=== PATIENT | female | born 2000 | race Caucasian/White ===

== ENCOUNTER 2023-01-03 08:53 | Outpatient (CLI) | payer OTHER, SELFPAY | END 2023-01-03 08:54 | disposition home or self-care (01) | PROVIDERS: PCP Physician Assistant Medical; Visit Provider Physician Assistant | DX: Z01.419 Encounter for gynecological examination (general) (routine) without abnormal findings (principal); Z13.6 Encounter for screening for cardiovascular disorders | CPT/HCPCS: 80061 ==

== ENCOUNTER 2023-04-07 10:06 | Outpatient (CLI) | payer OTHER, SELFPAY ==
[2023-04-07 13:58] LABS: Chlamydia DNA Amplified* NOT DETECTED (No Detected); GC DNA Amplified* NOT DETECTED (No Detected)
== END 2023-04-07 10:07 | disposition home or self-care (01) ==
LOC: NFLDREF 10:06
PROVIDERS: PCP Physician Assistant Medical; Visit Provider Physician Assistant
DX: N92.1 Excessive and frequent menstruation with irregular cycle (principal); Z11.3 Encounter for screening for infections with a predominantly sexual mode of transmission
CPT/HCPCS: 87491; 87591

== ENCOUNTER 2023-05-05 13:45 | Outpatient (CLI) | payer OTHER, SELFPAY ==
--- NOTE | 2023-05-05 14:00 | CRLHL7_ITS ---
For Patients: As a result of the Century Cures Act, medical imaging exams and procedure reports are released immediately into your electronic medical record. You may view this report before your referring provider. If you have questions, please contact your health care provider. INDICATION: EXCESSIVE AND FREQUENT MENSES COMPARISON: 09/04/2020 TECHNIQUE: 2D lopez scale and color Doppler images were acquired of the pelvis using a transabdominal and transvaginal approach. FINDINGS: Sonographic images demonstrate a normal size and smooth outer contour of the uterus. Uterus measures 9.0 cm in length by 3.2 cm in AP diameter by 4.2 cm in transverse dimension. The myometrium has a normal uniform echotexture. Intrauterine device is present within the upper mid endometrial canal. The endometrium does not appear thickened and measures approximately 4.6 millimeters. The right ovary measures 4.7 x 2.2 x 2.4 cm in size and the left ovary measures 4.2 x 1.9 x 2.3 cm. The ovaries demonstrate normal arterial and venous blood flow on color Doppler analysis. There are no suspicious fluid collections within the cul-de-sac. IMPRESSION: The IUD is located within the mid upper endometrial canal, likely normal in position. The endometrium is not thickened and measures approximately 4.6 millimeters. No uterine fibroid. Dictated by Teddy West MD @ 05/08/2023 9:12:23 AM (Electronically Signed)
== END 2023-05-05 13:46 | disposition home or self-care (01) ==
LOC: US 13:46
PROVIDERS: PCP Physician Assistant Medical; Visit Provider Physician Assistant
DX: N92.1 Excessive and frequent menstruation with irregular cycle (principal); Z97.5 Presence of (intrauterine) contraceptive device
CPT/HCPCS: 76830; 76856

== ENCOUNTER 2023-05-11 09:33 | Outpatient (CLI) | payer OTHER, SELFPAY | END 2023-05-11 09:34 | disposition home or self-care (01) | LOC: NFLDREF 05-19 05:46 | PROVIDERS: PCP Physician Assistant Medical; Referring Provider Physician Assistant Medical; Visit Provider Physician Assistant | DX: N92.1 Excessive and frequent menstruation with irregular cycle (principal); Z97.5 Presence of (intrauterine) contraceptive device | CPT/HCPCS: 82728 ==

== ENCOUNTER 2024-12-16 15:57 | Outpatient (CLI) | payer OTHER, SELFPAY | END 2024-12-16 15:58 | disposition home or self-care (01) | LOC: NFLDREF 12-19 02:23 | PROVIDERS: PCP Emergency Medicine; Referring Provider Emergency Medicine; Visit Provider Emergency Medicine | DX: Z11.1 Encounter for screening for respiratory tuberculosis (principal) | CPT/HCPCS: 86480 ==